=== PATIENT | male | born 1990 | race African-American/Black ===

== ENCOUNTER 2017-01-11 22:19 | Emergency (ER) | payer SELFPAY ==
[~2017-01-11] VITALS: Ht 185.4 cm; Wt 80.0 kg
[2017-01-11 22:21] VITALS: BP 141/85; PULSE 70; RESP 16; TEMP 97.9; O2SAT 99
[2017-01-12] MEDS ORDERED: ZITHTAB PO (00:43)
--- NOTE | 2017-01-12 00:43 | PD ---
HPI Chief Complaint: Cold / Flu Symptoms Time Seen by Provider: 00:36 Travel History International Travel<30 days: No Contact w/Intl Traveler<30days: No Traveled to known affect area: No History of Present Illness HPI 26-year-old male complains of productive cough. Patient states that the cough started 2 days ago. Patient states that the cough is intermittent and productive. Patient denies any fever. Patient denies any chest pain or shortness of breath. PFSH Past Medical History Asthma: Yes Past Surgical History Surgical History: No Previous Surgery Social History Alcohol Use: No Tobacco Use: Yes (1PPD) Substance Use: No Allergies-Medications (Allergen,Severity, Reaction): Coded Allergies: No Known Allergies (Unverified , 01/11/17) Reported Meds & Prescriptions Reported Meds & Active Scripts Active No Active Prescriptions or Reported Medications Review of Systems General / Constitutional: No: Fever Eyes: No: Visual changes HENT: No: Headaches Cardiovascular: No: Chest Pain or Discomfort Respiratory: Positive: Cough, No: Shortness of Breath Gastrointestinal: No: Abdominal Pain Genitourinary: No: Dysuria Musculoskeletal: No: Pain Skin: No Rash Neurologic: No: Weakness Psychiatric: No: Depression Endocrine: No: Polydipsia Hematologic/Lymphatic: No: Easy Bruising Physical Exam Narrative GENERAL: Well-nourished, well-developed patient. SKIN: Focused skin assessment warm/dry. HEAD: Normocephalic. EYES: No scleral icterus. No injection or drainage. NECK: Supple, trachea midline. No JVD or lymphadenopathy. CARDIOVASCULAR: Regular rate and rhythm without murmurs, gallops, or rubs. RESPIRATORY: Breath sounds equal bilaterally. No accessory muscle use. GASTROINTESTINAL: Abdomen soft, non-tender, nondistended. MUSCULOSKELETAL: No cyanosis, or edema. BACK: Nontender without obvious deformity. No CVA tenderness. Data Data Last Documented VS Vital Signs Date Time Temp Pulse Resp B/P (MAP) Pulse Ox O2 Delivery O2 Flow Rate FiO2 01/11/17 22:21 97.9 70 16 141/85 (103) 99 Room Air MDM Medical Decision Making Medical Screen Exam Complete: Yes Emergency Medical Condition: Yes Differential Diagnosis Differential diagnosis including URI, bronchitis, pneumonia. Narrative Course 26-year-old male with productive cough. Diagnosis Primary Impression: Bronchitis Patient Instructions: General Instructions Additional Instructions: Z-Robert as directed. [id number] cough medication as directed. Tylenol for fever. Follow-up with personal physician. Med/Other Pt SpecificInfo: Prescription(s) given Scripts Azithromycin (Zithromax Z-Robert) 250 Mg Dspk 250 MG PO DIRECTED for Infection, #1 DSPK 0 Refills 500 MG (2 tabs) day 1, then 1 tab days 2-5. Prov: Ramirez Velez MD 01/12/17 Disposition: 01 DISCHARGE HOME Condition: Stable Ramirez Velez MD Jan 12, 2017 00:43
== END 2017-01-12 01:12 | disposition home or self-care (01) ==
LOC: NEPD 22:19
DX: J40 Bronchitis, not specified as acute or chronic (principal); F17.200 Nicotine dependence, unspecified, uncomplicated
CPT/HCPCS: 99283

== ENCOUNTER 2017-06-01 14:51 | Emergency (ER) | payer SELFPAY ==
[~2017-06-01 14:51] MED LIST: ZITHTAB PO
[2017-06-01 15:18] VITALS: BP 132/68; PULSE 63; RESP 20; TEMP 98.2; O2SAT 99
--- NOTE | 2017-06-01 15:53 | PD ---
HPI . Pain all over Chief Complaint: General Weakness Time Seen by Provider: 15:51 Travel History International Travel<30 days: No Contact w/Intl Traveler<30days: No Traveled to known affect area: No History of Present Illness HPI Patient presents stating that he has pain all over. Onset was 30 minutes ago. It hurts to move. He has not done anything for prior to arrival. He has not had any injury. He does not have any associated symptoms. He specifically denies fever, cold symptoms, difficulty breathing, vomiting, diarrhea, urinary tract symptoms. History Past Medical Histgory Medical History: Denies Significant Hx Past Surgical History Surgical History: No Previous Surgery Social History Alcohol Use: No Tobacco Use: Yes (1PPD) Allergies-Medications (Allergen,Severity, Reaction): Coded Allergies: No Known Allergies (Unverified , 01/11/17) Reported Meds & Prescriptions Reported Meds & Active Scripts Active Zithromax Z-Robert (Azithromycin) 250 Mg Dspk 250 Mg PO DIRECTED 500 MG (2 tabs) day 1, then 1 tab days 2-5. Review of Systems Except as stated in HPI: all other systems reviewed are Neg Physical Exam Narrative GENERAL: Awake and alert and in no acute distress. SKIN: Warm and dry. HEAD: Normocephalic/atraumatic. EYES: Pupils are equal. Extraocular movements are intact. NECK: Normal range of motion. CARDIOVASCULAR: Regular rate and rhythm. RESPIRATORY: Nonlabored respirations. Lungs are clear with full air movement throughout. MUSCULOSKELETAL: No tenderness to percussion of the spine. NEUROLOGICAL: Nonfocal. PSYCHIATRIC: Appropriate mood and affect. Data Data Last Documented VS Vital Signs Date Time Temp Pulse Resp B/P (MAP) Pulse Ox O2 Delivery O2 Flow Rate FiO2 06/01/17 15:49 Room Air 06/01/17 15:18 98.2 63 20 132/68 (89) 99 MDM Medical Screen Exam Complete: Yes Emergency Medical Condition: No Narrative Course A medical screening exam was performed: At the time of evaluation the presenting medical condition was determined not to be of an emergent nature. The patient was given the option of receiving additional care, but declined. Patient was given options for additional community resources from which to obtain care. The Patient Has Been advised to seek medical attention for their presenting complaint. The patient has been advised to return to the ER at any time if an emergent condition develops. Primary Impression: Encounter for medical screening examination Condition: Stable Frida Osborne MD Jun 01, 2017 15:53
== END 2017-06-01 15:58 | disposition left against medical advice (07) ==
LOC: NEPD 14:51
DX: R53.1 Weakness (principal); R52 Pain, unspecified; F17.200 Nicotine dependence, unspecified, uncomplicated
CPT/HCPCS: 99281

== ENCOUNTER 2017-07-20 15:39 | Emergency (ER) | payer OTHER ==
[~2017-07-20] VITALS: Ht 185.4 cm; Wt 82.0 kg
[2017-07-20 16:01] VITALS: BP 111/76; PULSE 69; RESP 16; TEMP 98.5; O2SAT 98
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
[2017-07-20 16:05] VITALS: BP 111/76; PULSE 69; RESP 16; TEMP 98.5; O2SAT 98
[2017-07-20 16:40] LABS: AUTOMATED NEUTROPHIL # 3.3 TH/MM3 (1.8-7.7); BASOPHIL # 0.1 TH/MM3 (0-0.2); BASOPHIL % 1.1 % (0.0-2.0); EOSINOPHIL # 0.1 TH/MM3 (0-0.4); EOSINOPHIL % 2.3 % (0.0-4.0); HEMATOCRIT 42.8 % (39.0-51.0); LYMPH % 24.1 % (9.0-44.0); LYMPHOCYTE # 1.2 TH/MM3 (1.0-4.8); MEAN CELL VOLUME 90.2 FL (80.0-100.0); MEAN CORPUSCULAR HEMOGLOBIN 31.7 PG (27.0-34.0); MEAN CORPUSCULAR HGB CONC 35.2 % (32.0-36.0); MEAN PLATELET VOLUME 8.3 FL (7.0-11.0); MONO % 8.3 % (0.0-8.0); MONOCYTE # 0.4 TH/MM3 (0-0.9); NEUT % 64.2 % (16.0-70.0); PLATELET COUNT 224 TH/MM3 (150-450); RED BLOOD COUNT 4.74 MIL/MM3 (4.50-5.90); RED CELL DISTRIBUTION WIDTH 14.2 % (11.6-17.2); WHITE BLOOD COUNT 5.1 TH/MM3 (4.0-11.0)
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
[2017-07-20 17:18] LABS: CALCIUM 7.9 MG/DL (8.5-10.1); CREATININE 0.91 MG/DL (0.60-1.30)
[2017-07-20] MEDS ORDERED: ONDANSETRON ODT 4 MG TAB PO ONE (17:45)
[2017-07-20] MEDS ORDERED: MORPHINE SULFATE 4 MG/ML INJ IV PUSH ONE (17:45)
[2017-07-20] MEDS ORDERED: SODIUM CHLORID 0.9% 500 ML INJ 500 ML IV ONE (17:45)
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
[2017-07-20] MEDS ORDERED: IOHEXOL 350 MG/ML 10 ML VIAL (for RAD DIAG) IVCONTRAST ONE (18:42)
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
[2017-07-20] MEDS ORDERED: TETANUS/DIPHTHERIA TOXOID ADULT 0.5 ML VIAL IM ONE (19:00)
[2017-07-20] MEDS ORDERED: KETOROLAC TROMETHAMINE 30 MG/ML (IVP) VIAL IV PUSH ONE (19:00)
[2017-07-20] MEDS ORDERED: CYCL10TA PO (19:15)
[2017-07-20] MEDS ORDERED: IBUP-232 PO (19:15)
[2017-07-20 20:00] VITALS: BP 133/63
== END 2017-07-20 20:04 | disposition home or self-care (01) ==
LOC: NEPD 15:39
DX: R07.9 Chest pain, unspecified (principal); R10.32 Left lower quadrant pain; S50.312A Abrasion of left elbow, initial encounter; S80.812A Abrasion, left lower leg, initial encounter; S06.9X9A Unspecified intracranial injury with loss of consciousness of unspecified duration, initial encounter; H53.8 Other visual disturbances; M54.2 Cervicalgia; V03.90XA Pedestrian on foot injured in collision with car, pick-up truck or van, unspecified whether traffic or nontraffic accident, initial encounter; Y92.410 Unspecified street and highway as the place of occurrence of the external cause; Z23 Encounter for immunization; J45.909 Unspecified asthma, uncomplicated; F17.210 Nicotine dependence, cigarettes, uncomplicated
CPT/HCPCS: 70450; 71260; 72125; 74177; 80048; 85025; 90471; 90714; 96361; 96374; 96375; 99284; J1885; J2270; J7040; Q9967